=== PATIENT | female | born 1960 | race Hispanic/Latino ===

== ENCOUNTER 2017-04-10 13:01 | Emergency (ER) | payer SELFPAY ==
[2017-04-10 14:08] LABS: Basophils % (Auto) 0.6 % (0.0-1.8); Eosinophils % (Auto) 1.5 % (0.0-4.3); Hematocrit 41.5 % (30.3-42.9); Hemoglobin 13.9 gm/dl (10.1-14.3); Mean Corpuscular HGB Conc 33 % (30-34); Mean Corpuscular Hemoglobin 30 pg (28-32); Mean Corpuscular Volume 89 fl (79-97); Platelet Count 397 K/mm3 (140-440); Red Blood Count 4.65 M/mm3 (3.65-5.03); Red Cell Distribution Width 14.6 % (13.2-15.2); White Blood Count 10.6 K/mm3 (4.5-11.0)
[2017-04-10 14:11] LABS: Alanine Aminotransferase 17 units/L (7-56); Albumin 4.4 g/dL (3.9-5); Alkaline Phosphatase 119 units/L (35-129); Anion Gap 20 mmol/L; BUN/Creatinine Ratio 26.66; Blood Urea Nitrogen 24 mg/dL (7-17); Calcium 10.1 mg/dL (8.4-10.2); Carbon Dioxide 25 mmol/L (22-30); Chloride 97.5 mmol/L (98-107); Glucose 116 mg/dL (65-100); Lipase 30 units/L (13-60); Sodium 138 mmol/L (137-145); Total Protein 8.7 g/dL (6.3-8.2)
[2017-04-10 15:28] LABS: Bacteria,Urine 4+ /HPF (Negative); Bilirubin,Urine NEG (Negative); Blood,Urine SM (Negative); Ketones,Urine NEG (Negative); Leukocyte Esterase,Urine SM (Negative); Mucus,Urine 3+ /HPF; Nitrite,Urine NEG (Negative)
[2017-04-10] MEDS ORDERED: ZOFRAN IV ONE (22:44)
[2017-04-10] MEDS ORDERED: TORADOL IV ONE (22:44)
[2017-04-10] MEDS ORDERED: PROVENTIL IH ONE (22:44)
[2017-04-10] MEDS ORDERED: BENTYL IM ONE (22:44)
--- NOTE | 2017-04-10 22:50 | Emergency Department Report ---
ED General Adult HPI - General Chief complaint: Abdominal Pain Stated complaint: Abd Pain Time Seen by Provider: 04/10/17 22:33 Source: patient, RN notes reviewed, old records reviewed Mode of arrival: Ambulatory Limitations: No Limitations - History of Present Illness Initial comments: This is a 56-year-old female. She is previously unknown to me. Primary care physician: Tyrone forrest Past medical history: Obesity, hypertension, high cholesterol, depression, renal colic, possible COPD (the patient does not endorse any prior pulmonary function testing." The patient presents to the ER today complaining of left upper quadrant pain, nausea, diarrhea, right lower paraspinal back pain. There is no chest pain. There is no shortness of breath. Positive cough. Positive mucous production. Left upper quadrant pain started yesterday. It is crampy and achy in nature. He does not have any exacerbating or relieving factors. Patient endorses some brown diarrhea 3. It is nonbloody and nonbilious. Patient denies recent antibiotic use. The patient denies dysuria, hematuria, urinary frequency. The cough and wheezing have a present for the past day or so. The right lower back pain has been present for a day or so. There is no saddle anesthesia. There is no extremity weakness. There is no extremity numbness. -: Gradual Location: back, abdomen Quality: aching Consistency: intermittent Improves with: other (as per history of present illness) Worsens with: other (as per history of present illness) Associated Symptoms: cough, nausea/vomiting - Related Data Home Medications Medication Instructions Recorded Confirmed Last Taken FLUoxetine [Prozac] 20 mg PO QDAY 08/20/13 12/07/13 12/06/13 Lisinopril/Hydrochlorothiazide 1 tab PO QDAY 08/20/13 12/07/13 12/06/13 [Zestoretic 20-25 mg] Atorvastatin Calcium [Lipitor] 20 mg PO DAILY 12/07/13 12/07/13 12/06/13 Previous Rx's Medication Instructions Recorded Last Taken Type HYDROcodone/APAP 5-325 [[place] 1 each PO Q6HR PRN #20 tablet 12/07/13 Unknown Rx 5/325 mg] Levofloxacin [Levaquin] 750 mg PO QDAY #10 tablet 12/07/13 Unknown Rx Ondansetron [Zofran Odt] 4 mg PO Q6HR PRN #15 tab.rapdis 12/07/13 Unknown Rx Benzonatate [Tessalon Perles] 100 mg PO Q8HR PRN #30 capsule 05/08/16 Unknown Rx Ondansetron [Zofran Odt] 4 mg PO Q8HR PRN #20 tab.rapdis 05/08/16 Unknown Rx traMADol [Ultram 50 MG tab] 50 mg PO Q6HR PRN #20 tablet 05/08/16 Unknown Rx Albuterol Sulfate [Proair 90 mcg IH Q4HR PRN #2 aer.pow.ba 04/11/17 Unknown Rx Respiclick] Dicyclomine [Bentyl] 10 mg PO QID PRN #20 capsule 04/11/17 Unknown Rx Ondansetron [Zofran Odt] 4 mg PO QID PRN #20 tab.rapdis 04/11/17 Unknown Rx Allergies Allergy/AdvReac Type Severity Reaction Status Date / Time codeine Allergy Rash Verified 08/20/13 14:14 ED Review of Systems ROS: Stated complaint: Abd Pain Other details as noted in HPI Constitutional: malaise. denies: fever Eyes: denies: vision change ENT: denies: epistaxis Respiratory: cough Gastrointestinal: abdominal pain Genitourinary: as per HPI Musculoskeletal: as per HPI, back pain Skin: as per HPI Neurological: as per HPI Psychiatric: anxiety ED Past Medical Hx - Past Medical History Previous Medical History?: Yes Hx Hypertension: Yes Hx Psychiatric Treatment: Yes (depression) Hx COPD: Yes Additional medical history: high chol, neuropathy - Surgical History Past Surgical History?: Yes Additional Surgical History: Bilateral tubal ligation - Social History Smoking Status: Never Smoker Substance Use Type: Prescribed - Medications Home Medications: Home Medications Medication Instructions Recorded Confirmed Last Taken Type FLUoxetine [Prozac] 20 mg PO QDAY 08/20/13 12/07/13 12/06/13 History Lisinopril/Hydrochlorothiazide 1 tab PO QDAY 08/20/13 12/07/13 12/06/13 History [Zestoretic 20-25 mg] Atorvastatin Calcium [Lipitor] 20 mg PO DAILY 12/07/13 12/07/13 12/06/13 History HYDROcodone/APAP 5-325 [[place] 1 each PO Q6HR PRN #20 tablet 12/07/13 Unknown Rx 5/325 mg] Levofloxacin [Levaquin] 750 mg PO QDAY #10 tablet 12/07/13 Unknown Rx Ondansetron [Zofran Odt] 4 mg PO Q6HR PRN #15 tab.rapdis 12/07/13 Unknown Rx Benzonatate [Tessalon Perles] 100 mg PO Q8HR PRN #30 capsule 05/08/16 Unknown Rx Ondansetron [Zofran Odt] 4 mg PO Q8HR PRN #20 tab.rapdis 05/08/16 Unknown Rx traMADol [Ultram 50 MG tab] 50 mg PO Q6HR PRN #20 tablet 05/08/16 Unknown Rx Albuterol Sulfate [Proair 90 mcg IH Q4HR PRN #2 aer.pow.ba 04/11/17 Unknown Rx Respiclick] Dicyclomine [Bentyl] 10 mg PO QID PRN #20 capsule 04/11/17 Unknown Rx Ondansetron [Zofran Odt] 4 mg PO QID PRN #20 tab.rapdis 04/11/17 Unknown Rx ED Physical Exam - General Limitations: No Limitations General appearance: alert, in no apparent distress - Head Head exam: Present: atraumatic, normocephalic - Eye Eye exam: Present: normal appearance, EOMI. Absent: nystagmus - ENT ENT exam: Present: normal exam, normal orophraynx, mucous membranes moist, normal external ear exam - Neck Neck exam: Present: normal inspection, full ROM. Absent: tenderness, meningismus - Respiratory Respiratory exam: Present: normal lung sounds bilaterally. Absent: respiratory distress, wheezes, rales, rhonchi, stridor, chest wall tenderness, accessory muscle use, decreased breath sounds, prolonged expiratory - Cardiovascular Cardiovascular Exam: Present: regular rate, normal rhythm, normal heart sounds. Absent: bradycardia, tachycardia, irregular rhythm, systolic murmur, diastolic murmur, rubs, gallop - GI/Abdominal GI/Abdominal exam: Present: soft, normal bowel sounds. Absent: distended, tenderness, guarding, rebound, rigid, pulsatile mass - Extremities Exam Extremities exam: Present: normal inspection, full ROM, normal capillary refill. Absent: tenderness, pedal edema, joint swelling, calf tenderness - Back Exam Back exam: Present: normal inspection, full ROM. Absent: tenderness, CVA tenderness (R), CVA tenderness (L), muscle spasm, paraspinal tenderness, vertebral tenderness - Neurological Exam Neurological exam: Present: alert, oriented X3, normal gait, other (Extraocular movements intact. Tongue midline. No facial droop. Facial sensation intact to light touch in the V1, V2, V3 distribution bilaterally. 5 and 5 strength in 4 extremities.. Sensation is intact to light touch in 4 extremities.). Absent : motor sensory deficit - Psychiatric Psychiatric exam: Present: anxious - Skin Skin exam: Present: warm, dry, intact, normal color. Absent: rash ED Course Vital Signs 04/10/17 04/10/17 04/10/17 13:25 22:45 23:00 Temperature 98.3 F Pulse Rate 87 Pulse Rate [ 99 H 101 H Anterior] Respiratory 20 Rate Respiratory 18 22 Rate [Anterior] Blood Pressure 129/85 Blood Pressure [Left] O2 Sat by Pulse 98 Oximetry 04/10/17 04/10/17 04/11/17 23:26 23:30 02:32 Temperature Pulse Rate 87 Pulse Rate [ Anterior] Respiratory 17 Rate Respiratory Rate [Anterior] Blood Pressure 125/72 Blood Pressure 120/74 [Left] O2 Sat by Pulse 93 93 97 Oximetry - Reevaluation(s) Reevaluation #1: 04/10/17 22:51 differential diagnosis: Renal colic, pneumonia, pulmonary embolus , AAA, urinary tract infection, enteritis, bronchitis, COPD Assessment and plan: 56-year-old female with a primary complaint of atraumatic left upper quadrant pain, a number of nonspecific complaints, including lower back pain, cough, mucus production, nausea. Does not have pulmonary embolus or DVT risk factors, and is low risk by well's criteria. No obvious wheezing is noted on physical examination. There is no obvious abdominal tenderness on physical examination. Patient will be treated symptomatically. CT scan of the abdomen and pelvis is pending. X-ray of the chest is pending. EKG is pending. Urinalysis is appreciated, it is contaminated, the patient does not endorse any irritative or obstructive urinary symptoms. Reevaluation #2: 04/11/17 01:31 patient feels improved. No wheezing noted on repeat pulmonary examination. X-ray of the chest is essentially negative. Patient is tolerating liquid feeds. CT scan of the abdomen and pelvis is negative. Patient reports that she is ready for discharge. Patient will be discharged with pain medication, nausea medication, breathing medication, instructions to follow up with local primary care doctor. Return precautions are reviewed. ED Medical Decision Making - Lab Data Result diagrams: 04/10/17 13:39 04/10/17 13:39 Vital Signs 04/10/17 13:25 Temperature 98.3 F Pulse Rate 87 Respiratory 20 Rate Blood Pressure 129/85 O2 Sat by Pulse 98 Oximetry Lab Results 04/10/17 04/10/17 04/10/17 Range/Units 13:39 13:39 14:33 WBC 10.6 (4.5-11.0) K/mm3 RBC 4.65 (3.65-5.03) M/mm3 Hgb 13.9 (10.1-14.3) gm/dl Hct 41.5 (30.3-42.9) % MCV 89 (79-97) fl MCH 30 (28-32) pg MCHC 33 (30-34) % RDW 14.6 (13.2-15.2) % Plt Count 397 (140-440) K/mm3 Lymph % (Auto) 28.7 (13.4-35.0) % [place] % (Auto) 5.0 (0.0-7.3) % Eos % (Auto) 1.5 (0.0-4.3) % Baso % (Auto) 0.6 (0.0-1.8) % Lymph # 3.0 (1.2-5.4) K/mm3 [place] # 0.5 (0.0-0.8) K/mm3 Eos # 0.2 (0.0-0.4) K/mm3 Baso # 0.1 (0.0-0.1) K/mm3 Seg Neutrophils % 64.2 (40.0-70.0) % Seg Neutrophils # 6.8 (1.8-7.7) K/mm3 Sodium 138 (137-145) mmol/L Potassium 4.0 (3.6-5.0) mmol/L Chloride 97.5 L (98-107) mmol/L Carbon Dioxide 25 (22-30) mmol/L Anion Gap 20 mmol/L BUN 24 H (7-17) mg/dL Creatinine 0.9 (0.7-1.2) mg/dL Estimated GFR > 60 ml/min BUN/Creatinine Ratio 26.66 % Glucose 116 H (65-100) mg/dL Calcium 10.1 (8.4-10.2) mg/dL Total Bilirubin 0.50 (0.1-1.2) mg/dL AST 37 (5-40) units/L ALT 17 (7-56) units/L Alkaline Phosphatase 119 (35-129) units/L Total Protein 8.7 H (6.3-8.2) g/dL Albumin 4.4 (3.9-5) g/dL Albumin/Globulin Ratio 1.0 % Lipase 30 (13-60) units/L Urine Color [place] (Yellow) Urine Turbidity Cloudy (Clear) Urine pH 5.0 (5.0-7.0) Ur Specific [place] 1.023 (1.003-1.030) Urine Protein 30 mg/dl (Negative) mg/dL Urine Glucose (UA) Neg (Negative) mg/dL Urine Ketones Neg (Negative) mg/dL Urine Blood Sm (Negative) Urine Nitrite Neg (Negative) Urine Bilirubin Neg (Negative) Urine Urobilinogen 2.0 (<2.0) mg/dL Ur Leukocyte Esterase Sm (Negative) Urine WBC (Auto) 5.0 (0.0-6.0) /HPF Urine RBC (Auto) 4.0 (0.0-6.0) /HPF U Epithel Cells (Auto) 18.0 H (0-13.0) /HPF Urine Bacteria (Auto) 4+ (Negative) /HPF Hyaline Casts 24 /LPF Urine Mucus 3+ /HPF - EKG Data -: EKG Interpreted by Me EKG shows normal: sinus rhythm, axis, intervals, QRS complexes, ST-T waves Rate: normal - EKG Data When compared to previous EKG there are: previous EKG unavailable - Radiology Data Radiology results: pending, report reviewed, image reviewed interpreted by me: X-ray of the chest negative for infiltrate. Peribronchial cuffing is suggested ct abdomen pelvis negative Critical care attestation.: If time is entered above; I have spent that time in minutes in the direct care of this critically ill patient, excluding procedure time. ED Disposition Clinical Impression: Bronchitis, Abdominal pain Disposition: DC-01 TO HOME OR SELFCARE Is pt being admited?: No Does the pt Need Aspirin: No Condition: Good Instructions: Acute Bronchitis (ED), Abdominal Pain (ED) Additional Instructions: Take pain medication, nausea medication, breathing/cough medication as needed/ directed. Follow up with the primary care doctor within the next 7-10 days. Return to the ER right away with new pain, worsened pain, migration of pain, fevers, chills, intractable nausea or vomiting, worsened pain, confusion, inability to tolerate liquid feeds. Prescriptions: Albuterol Sulfate [Proair Respiclick] 90 mcg IH Q4HR PRN #2 aer.pow.ba PRN Reason: Wheezing Dicyclomine [Bentyl] 10 mg PO QID PRN #20 capsule PRN Reason: Pain Ondansetron [Zofran Odt] 4 mg PO QID PRN #20 tab.rapdis PRN Reason: Nausea Referrals: PRIMARY CARE, [Primary Care Provider] - 3-5 Days OTTONIEL BACH MD [Staff Physician] - 3-5 Days [facility] [Provider Group] - 3-5 Days
[2017-04-10] MEDS ORDERED: NACL 0.9% 500 ML 500 ML IV SCH (23:00)
[2017-04-10] MEDS ORDERED: NACL ONE (23:22)
--- NOTE | 2017-04-11 01:14 | Cat Scan Report ---
FINAL REPORT PROCEDURE: CT ABDOMEN PELVIS W CON TECHNIQUE: Computerized axial tomography of the abdomen and pelvis was performed after the IV injection of iodinated nonionic contrast. HISTORY: luq abd pain, rlq back pain COMPARISON: 05/07/2016 FINDINGS: Visualized lower thorax: No significant abnormality. Liver: Normal size and attenuation. Spleen: Normal size and attenuation. Gallbladder and biliary system: Normal. Pancreas: Normal. Adrenals: Normal. Kidneys: Both kidneys have normal size. No hydronephrosis. No renal stones or masses. GI tract: A small hiatal hernia is identified. No obstruction, ileus or enteritis. The cecum, appendix and colon are normal. Lymph nodes and mesentery: Normal. Vasculature: Normal. Bladder: Normal. Reproductive organs: The uterus has a normal size. There are areas of hypoattenuation most consistent with fibroids in the myometrium.. Peritoneum: No free fluid. Musculoskeletal structures: No significant abnormality. Other: None. IMPRESSION: There is no evidence of intestinal or urinary tract obstruction. No ileus or enteritis. The appendix is normal. A small hiatal hernia is noted.
[2017-04-11 01:49] LABS: Bilirubin,Urine NEG (Negative); Blood,Urine NEG (Negative); Ketones,Urine NEG (Negative); Leukocyte Esterase,Urine NEG (Negative); Mucus,Urine 1+ /HPF; Nitrite,Urine NEG (Negative); Protein,Urine <15 mg/dL mg/dL (Negative); Urobilinogen,Urine < 2.0 mg/dL (<2.0)
[2017-04-11 02:33] VITALS: BP 120/74
--- NOTE | 2017-04-11 07:22 | XRay Report ---
Chest 2 views: Compared to 05/07/16. History: Cough. Findings: Normal cardiomediastinal silhouette. Trachea is midline. No consolidation, pneumothorax or pleural effusion. Impression: No acute cardiopulmonary findings.
== END 2017-04-11 02:32 | disposition home or self-care (01) ==
LOC: ED 13:01
DX: J40 Bronchitis, not specified as acute or chronic (principal); R10.12 Left upper quadrant pain; I10 Essential (primary) hypertension; J44.9 Chronic obstructive pulmonary disease, unspecified; E78.00 Pure hypercholesterolemia, unspecified; Z88.5 Allergy status to narcotic agent
CPT/HCPCS: 36415; 71020; 74177; 80053; 81001; 83690; 85025; 85379; 85610; 93005; 93010; 94640; 96361; 96372; 96374; 96375; 99284; J0500; J1885; J2405; J7040; Q9967

== ENCOUNTER 2017-08-31 22:19 | Emergency (ER) | payer SELFPAY ==
[2017-09-01] MEDS ORDERED: ZOFRAN ONE (02:24)
[2017-09-01] MEDS ORDERED: ZOFRAN IV ONE (02:30)
[2017-09-01 07:58] VITALS: BP 135/89
[2017-09-01 08:20] LABS: Basophils % (Auto) 0.4 % (0.0-1.8); Eosinophils % (Auto) 1.3 % (0.0-4.3); Hematocrit 40.1 % (30.3-42.9); Hemoglobin 13.8 gm/dl (10.1-14.3); Mean Corpuscular HGB Conc 35 % (30-34); Mean Corpuscular Hemoglobin 31 pg (28-32); Mean Corpuscular Volume 89 fl (79-97); Platelet Count 367 K/mm3 (140-440); Red Blood Count 4.53 M/mm3 (3.65-5.03); Red Cell Distribution Width 14.2 % (13.2-15.2); White Blood Count 8.7 K/mm3 (4.5-11.0)
[2017-09-01 08:36] LABS: Calcium 9.7 mg/dL (8.4-10.2); Chloride 97.2 mmol/L (98-107); Potassium 3.4 mmol/L (3.6-5.0)
[2017-09-01] MEDS ORDERED: K-DUR PO ONE (09:50)
[2017-09-01] MEDS ORDERED: BENTYL PO ONE ×2 (09:56→12:00)
[2017-09-01] MEDS ORDERED: PEPCID IV ONE (09:56)
[2017-09-01] MEDS ORDERED: REGLAN IV ONE (09:56)
[2017-09-01] MEDS ORDERED: CARAFATE PO ONE (09:56)
[2017-09-01] MEDS ORDERED: NACL 0.9% 1000 ML 1,000 ML IV ONE (09:56)
--- NOTE | 2017-09-01 09:57 | Emergency Department Report ---
ED N/V/D HPI - General Chief complaint: Abdominal Pain Stated complaint: N/V/D Time Seen by Provider: 09/01/17 09:42 Source: patient, EMS (ems notes not available at time of chart dictation), RN notes reviewed, old records reviewed Mode of arrival: Ambulatory Limitations: No Limitations - History of Present Illness Initial comments: This is a 56-year-old female. I have evaluated this patient in the past. Primary care physician is Isidro clayton. Past medical history includes obesity, hypertension, high cholesterol, depression, renal colic, COPD, distant history of bilateral tubal ligation. Patient presents to the ER with a complaint of nausea, vomiting, diarrhea. Patient reports positive sick contacts at home with similar symptoms. Emesis is nonbloody and nonbilious, vomited 3-4 times. Diarrhea is clear and watery, has had 3-4 episodes in the past 24 hours. No abdominal pain, states she feels "queasy." No irritative or obstructive urinary symptoms. Symptoms are constant, they worsen when she eats. They decrease with rest. MD complaint: nausea, vomiting, diarrhea -: Gradual Description of Vomiting: watery Description of Diarrhea: water, mucous Associated Abdominal Pain: No Improves with: rest Worsens with: eating Context: possible food poisoning, sick contacts Associated Symptoms: cough (chronic), nausea/vomiting. denies: myalgias, chest pain - Related Data Home Medications Medication Instructions Recorded Confirmed Last Taken FLUoxetine [Prozac] 20 mg PO QDAY 08/20/13 12/07/13 12/06/13 Lisinopril/Hydrochlorothiazide 1 tab PO QDAY 08/20/13 12/07/13 12/06/13 [Zestoretic 20-25 mg] Atorvastatin Calcium [Lipitor] 20 mg PO DAILY 12/07/13 12/07/13 12/06/13 Previous Rx's Medication Instructions Recorded Last Taken Type HYDROcodone/APAP 5-325 [[place] 1 each PO Q6HR PRN #20 tablet 12/07/13 Unknown Rx 5/325 mg] Levofloxacin [Levaquin] 750 mg PO QDAY #10 tablet 12/07/13 Unknown Rx Ondansetron [Zofran Odt] 4 mg PO Q6HR PRN #15 tab.rapdis 12/07/13 Unknown Rx Benzonatate [Tessalon Perles] 100 mg PO Q8HR PRN #30 capsule 05/08/16 Unknown Rx Ondansetron [Zofran Odt] 4 mg PO Q8HR PRN #20 tab.rapdis 05/08/16 Unknown Rx traMADol [Ultram 50 MG tab] 50 mg PO Q6HR PRN #20 tablet 05/08/16 Unknown Rx Albuterol Sulfate [Proair 90 mcg IH Q4HR PRN #2 aer.pow.ba 04/11/17 Unknown Rx Respiclick] Dicyclomine [Bentyl] 10 mg PO QID PRN #20 capsule 04/11/17 Unknown Rx Ondansetron [Zofran Odt] 4 mg PO QID PRN #20 tab.rapdis 04/11/17 Unknown Rx Ondansetron [Zofran Odt] 4 mg PO Q8HR PRN #20 tab.rapdis 09/01/17 Unknown Rx Promethazine [Phenergan SUPPOS] 50 mg ID Q6H PRN #20 supp.rect 09/01/17 Unknown Rx Allergies Allergy/AdvReac Type Severity Reaction Status Date / Time codeine Allergy Rash Verified 08/20/13 14:14 ED Review of Systems ROS: Stated complaint: N/V/D Other details as noted in HPI ED Past Medical Hx - Past Medical History Hx Hypertension: Yes Hx Psychiatric Treatment: Yes (depression) Hx COPD: Yes Additional medical history: high chol, neuropathy - Surgical History Additional Surgical History: Bilateral tubal ligation - Social History Smoking Status: Never Smoker Substance Use Type: None - Medications Home Medications: Home Medications Medication Instructions Recorded Confirmed Last Taken Type FLUoxetine [Prozac] 20 mg PO QDAY 08/20/13 12/07/13 12/06/13 History Lisinopril/Hydrochlorothiazide 1 tab PO QDAY 08/20/13 12/07/13 12/06/13 History [Zestoretic 20-25 mg] Atorvastatin Calcium [Lipitor] 20 mg PO DAILY 12/07/13 12/07/13 12/06/13 History HYDROcodone/APAP 5-325 [[place] 1 each PO Q6HR PRN #20 tablet 12/07/13 Unknown Rx 5/325 mg] Levofloxacin [Levaquin] 750 mg PO QDAY #10 tablet 12/07/13 Unknown Rx Ondansetron [Zofran Odt] 4 mg PO Q6HR PRN #15 tab.rapdis 12/07/13 Unknown Rx Benzonatate [Tessalon Perles] 100 mg PO Q8HR PRN #30 capsule 05/08/16 Unknown Rx Ondansetron [Zofran Odt] 4 mg PO Q8HR PRN #20 tab.rapdis 05/08/16 Unknown Rx traMADol [Ultram 50 MG tab] 50 mg PO Q6HR PRN #20 tablet 05/08/16 Unknown Rx Albuterol Sulfate [Proair 90 mcg IH Q4HR PRN #2 aer.pow.ba 04/11/17 Unknown Rx Respiclick] Dicyclomine [Bentyl] 10 mg PO QID PRN #20 capsule 04/11/17 Unknown Rx Ondansetron [Zofran Odt] 4 mg PO QID PRN #20 tab.rapdis 04/11/17 Unknown Rx Ondansetron [Zofran Odt] 4 mg PO Q8HR PRN #20 tab.rapdis 09/01/17 Unknown Rx Promethazine [Phenergan SUPPOS] 50 mg ID Q6H PRN #20 supp.rect 09/01/17 Unknown Rx ED Physical Exam - General Limitations: No Limitations General appearance: alert, in no apparent distress - Head Head exam: Present: atraumatic, normocephalic - Eye Eye exam: Present: normal appearance, EOMI. Absent: nystagmus - ENT ENT exam: Present: normal exam, normal orophraynx, mucous membranes moist, normal external ear exam - Neck Neck exam: Present: normal inspection, full ROM. Absent: tenderness, meningismus - Respiratory Respiratory exam: Present: normal lung sounds bilaterally. Absent: respiratory distress, wheezes, rales, rhonchi, stridor, decreased breath sounds - Cardiovascular Cardiovascular Exam: Present: regular rate, normal rhythm, normal heart sounds. Absent: bradycardia, tachycardia, irregular rhythm, systolic murmur, diastolic murmur, rubs, gallop - GI/Abdominal GI/Abdominal exam: Present: soft, normal bowel sounds. Absent: distended, tenderness, guarding, rebound, rigid, pulsatile mass - Extremities Exam Extremities exam: Present: normal inspection, full ROM, normal capillary refill. Absent: pedal edema, joint swelling, calf tenderness - Back Exam Back exam: Present: normal inspection, full ROM. Absent: tenderness, CVA tenderness (R), CVA tenderness (L), muscle spasm, paraspinal tenderness, vertebral tenderness - Neurological Exam Neurological exam: Present: alert, oriented X3, normal gait, other (Extraocular movements intact. Tongue midline. No facial droop. Facial sensation intact to light touch in the V1, V2, V3 distribution bilaterally. 5 and 5 strength in 4 extremities.. Sensation is intact to light touch in 4 extremities.). Absent : motor sensory deficit - Psychiatric Psychiatric exam: Present: normal affect, normal mood - Skin Skin exam: Present: warm, dry, intact, normal color. Absent: rash ED Course Vital Signs 08/31/17 09/01/17 09/01/17 22:59 02:10 07:54 Temperature 98.1 F 98.2 F 98.1 F Pulse Rate 92 H 78 76 Respiratory 18 18 18 Rate Blood Pressure 137/84 131/81 Blood Pressure 135/89 [Right] O2 Sat by Pulse 98 96 97 Oximetry ED Medical Decision Making - Lab Data Result diagrams: 09/01/17 08:08 09/01/17 08:08 Vital Signs 08/31/17 09/01/17 09/01/17 22:59 02:10 07:54 Temperature 98.1 F 98.2 F 98.1 F Pulse Rate 92 H 78 76 Respiratory 18 18 18 Rate Blood Pressure 137/84 131/81 Blood Pressure 135/89 [Right] O2 Sat by Pulse 98 96 97 Oximetry Lab Results 09/01/17 09/01/17 09/01/17 Range/Units 08:08 08:08 08:08 WBC 8.7 (4.5-11.0) K/mm3 RBC 4.53 (3.65-5.03) M/mm3 Hgb 13.8 (10.1-14.3) gm/dl Hct 40.1 (30.3-42.9) % MCV 89 (79-97) fl MCH 31 (28-32) pg MCHC 35 H (30-34) % RDW 14.2 (13.2-15.2) % Plt Count 367 (140-440) K/mm3 Lymph % (Auto) 41.2 H (13.4-35.0) % [place] % (Auto) 6.4 (0.0-7.3) % Eos % (Auto) 1.3 (0.0-4.3) % Baso % (Auto) 0.4 (0.0-1.8) % Lymph # 3.6 (1.2-5.4) K/mm3 Person # 0.6 (0.0-0.8) K/mm3 Eos # 0.1 (0.0-0.4) K/mm3 Baso # 0.0 (0.0-0.1) K/mm3 Seg Neutrophils % 50.7 (40.0-70.0) % Seg Neutrophils # 4.4 (1.8-7.7) K/mm3 Sodium 142 (137-145) mmol/L Potassium 3.4 L (3.6-5.0) mmol/L Chloride 97.2 L (98-107) mmol/L Carbon Dioxide 28 (22-30) mmol/L Anion Gap 20 mmol/L BUN 31 H (7-17) mg/dL Creatinine 1.1 (0.7-1.2) mg/dL Estimated GFR 51 ml/min BUN/Creatinine Ratio 28 % Glucose 104 H (65-100) mg/dL Calcium 9.7 (8.4-10.2) mg/dL Magnesium 2.40 H (1.7-2.3) mg/dL - Medical Decision Making Differential diagnosis: Gastroenteritis, dehydration, electrolyte derangement Assessment and plan: 56-year-old female with a complaint of nausea, vomiting and diarrhea. No abdominal tenderness, rebound or guarding, patient treated with appropriate medications, her symptoms improved, and she is able to keep liquids down. She denies urinary symptoms, had scant urine production in the ER , but was able to produce a urine sample which was insufficient. Given clinical history and lack of urinary symptoms, I doubt urinary tract infection, and patient will be discharged at this time with nausea medication, instructions to follow up. Return precautions are reviewed. Critical care attestation.: If time is entered above; I have spent that time in minutes in the direct care of this critically ill patient, excluding procedure time. ED Disposition Clinical Impression: Nausea vomiting and diarrhea Disposition: DC- TO HOME OR SELFCARE Is pt being admited?: No Does the pt Need Aspirin: No Condition: Stable Instructions: Acute Nausea and Vomiting (ED) Additional Instructions: Take the nausea medications as directed. Advanced diet gently, starting with bread, rice, apples toast, preferentially consume fluids. Patient may not want to eat solid food, and this is normal and expected. Wash hands very thoroughly after using restroom and before and after handling food. Follow up with a primary care doctor within the next 3-5 days. Return to the ER right away with fevers, chills, lethargy, irritability, projectile vomiting, change in mental status, inability to tolerate liquid feeds, new, worsening or different symptoms. Prescriptions: Ondansetron [Zofran Odt] 4 mg PO Q8HR PRN #20 tab.rapdis PRN Reason: Nausea Promethazine [Phenergan SUPPOS] 50 mg ID Q6H PRN #20 supp.rect PRN Reason: Nausea Referrals: PRIMARY CARE, [Primary Care Provider] - 3-5 Days [facility] [Provider Group] - 3-5 Days
[2017-09-01] MEDS ORDERED: BENTYL ONE (10:20)
== END 2017-09-01 11:28 | disposition home or self-care (01) ==
LOC: ED 22:19
DX: R11.2 Nausea with vomiting, unspecified (principal); R19.7 Diarrhea, unspecified; I10 Essential (primary) hypertension; J44.9 Chronic obstructive pulmonary disease, unspecified; G62.9 Polyneuropathy, unspecified; Z88.6 Allergy status to analgesic agent
CPT/HCPCS: 36415; 51701; 80048; 83735; 85025; 96361; 96374; 96375; 99284; J2405; J2765; J7030